=== PATIENT | female | born 1985 ===

== ENCOUNTER → 2020-05-11 08:37 | Outpatient (BNVA) | payer SELFPAY | PROVIDERS: PCP Internal Medicine; Visit Provider Physician Assistant | DX: Z76.89 Persons encountering health services in other specified circumstances (principal) ==

== ENCOUNTER → 2020-06-15 08:38 | Outpatient (BNVA) | payer SELFPAY | PROVIDERS: PCP Internal Medicine; Visit Provider Physician Assistant ==

== ENCOUNTER → 2020-08-03 08:15 | Outpatient (BNVA) | payer SELFPAY | PROVIDERS: PCP Internal Medicine; Visit Provider Physician Assistant | DX: Z90.3 Acquired absence of stomach [part of] (principal); E66.3 Overweight ==

== ENCOUNTER 2020-08-06 10:10 | Outpatient (REF) | payer OTHER, SELFPAY ==
[2020-08-06 11:38] LABS: MANUAL DIFF FLAG NO
[2020-08-06 11:51] LABS: Basophils Percent Auto 0.5 % (0-2); Eosinophils Absolute Auto 0.1 X10*3/uL (0.0-0.4); Eosinophils Percent Auto 2.5 % (0-4); Hematocrit 41.7 % (37-47); Hemoglobin 13.8 g/dl (12.0-16.0); Imm Gran Abs Auto 0.01 X10*3/uL (0.00-0.03); Imm Gran Pct Auto 0.3 % (0.0-0.4); Lymphocytes Absolute Auto 1.8 X10*3/uL (1.2-4.9); Lymphocytes Percent Auto 45.3 % (20-40); Mean Corpuscular HGB Conc 33.1 g/dl (31.0-35.0); Mean Corpuscular Hemoglobin 30.3 pg (27.0-33.0); Mean Corpuscular Volume 91.6 fL (80-98); Mean Platelet Volume 10.9 fL (9.4-12.3); Monocytes Absolute Auto 0.4 X10*3/uL (0.1-1.2); Monocytes Percent Auto 8.9 % (2-11); Neutrophils Absolute Auto 1.7 X10*3/uL (2.0-8.3); Neutrophils Percent Auto 42.5 % (45-73); Platelet Count 252 X10*3/uL (160-400); Red Blood Count 4.55 X10*6/uL (4.20-5.50); Red Cell Distribution Width 12.4 % (11.0-16.0)
[2020-08-06 12:30] LABS: Alanine Aminotransferase 21 U/L (0-31); Albumin Level 3.9 g/dL (3.5-5.0); Alkaline Phosphatase 76 U/L (39-117); Anion Gap 11 (12-20); Aspartate Amino Transferase 21 U/L (5-31); Bilirubin Total 0.8 mg/dL (0.0-1.0); Blood Urea Nitrogen 14 mg/dL (9-16); C Reactive Protein 0.07 mg/dL (< or = 0.50); Calcium 9.1 mg/dL (8.4-10.2); Carbon Dioxide 25 mmol/L (22-29); Chloride 106 mmol/L (96-108); Cholesterol 191 mg/dL; Estimated Glomerular Filt Rate > 60; Glucose Random 79 mg/dL (60-115); HDL Cholesterol 56 mg/dL; LDL Cholesterol Calculated 105 mg/dl; Potassium 4.2 mmol/L (3.3-5.1); Sodium 138 mmol/L (135-145); Total Protein 7.1 g/dL (6.5-8.0); Triglycerides 152 mg/dL
[2020-08-06 12:31] LABS: Estimated Average Glucose 91 mg/dL; Hemoglobin A1c % 4.8 %
[2020-08-06 12:53] LABS: Folate 12.8 ng/mL (> or = 4.0); Vitamin B12 523 pg/mL (200-900)
[2020-08-06 13:15] LABS: Ferritin 21 ng/mL (10-122)
[2020-08-07 09:27] LABS: Insulin Level Total 6.4 uIU/mL
[2020-08-07 11:52] LABS: Calcium (PTHI) 9.1 mg/dL (8.6-10.2); PTHI 31 pg/mL (14-64)
[2020-08-09 02:11] LABS: Zinc 76 mcg/dL (60-130)
[2020-08-11 12:16] LABS: Vitamin A 43 mcg/dL (38-98)
[2020-08-13 08:26] LABS: Vitamin B1 7 nmol/L (8-30)
== END 2020-08-06 10:11 | disposition home or self-care (01) ==
LOC: HO.LAB 10:10
PROVIDERS: PCP Internal Medicine; Visit Provider Physician Assistant
DX: Z90.3 Acquired absence of stomach [part of] (principal)
CPT/HCPCS: 36415; 80053; 80061; 82306; 82607; 82728; 82746; 83036; 83525; 83970; 84425; 84443; 84590; 84630; 85025; 86140

== ENCOUNTER → 2021-04-25 10:26 | Outpatient (BNVA) | payer OTHER, SELFPAY | PROVIDERS: PCP Internal Medicine; Referring Provider Internal Medicine; Visit Provider Physician Assistant | DX: E66.3 Overweight (principal); Z90.3 Acquired absence of stomach [part of]; Z98.891 History of uterine scar from previous surgery; Z68.28 Body mass index [BMI] 28.0-28.9, adult | CPT/HCPCS: 99212 ==

== ENCOUNTER → 2022-06-18 09:18 | Outpatient (BNVA) | payer OTHER, SELFPAY | PROVIDERS: PCP Internal Medicine; Visit Provider Surgery | DX: Z13.89 Encounter for screening for other disorder (principal) ==

== ENCOUNTER → 2022-06-19 16:23 | Outpatient (BNVA) | payer OTHER, SELFPAY | PROVIDERS: PCP Internal Medicine; Visit Provider Physician Assistant Surgical | DX: Z13.89 Encounter for screening for other disorder (principal) ==

== ENCOUNTER → 2022-07-02 16:33 | Outpatient (BNVA) | payer OTHER, SELFPAY | PROVIDERS: PCP Internal Medicine; Visit Provider Physician Assistant Surgical | DX: E66.9 Obesity, unspecified (principal); Z68.29 Body mass index [BMI] 29.0-29.9, adult; Z90.3 Acquired absence of stomach [part of] | CPT/HCPCS: 99212 ==

== ENCOUNTER 2022-07-26 09:16 | Outpatient (REF) | payer OTHER, SELFPAY ==
[2022-07-26 09:30] LABS: MANUAL DIFF FLAG NO
[2022-07-26 10:36] LABS: Basophils Absolute Auto 0.1 X10*3/uL (0.0-0.2); Basophils Percent Auto 1.2 % (0-2); Eosinophils Absolute Auto 0.2 X10*3/uL (0.0-0.4); Eosinophils Percent Auto 3.3 % (0-4); Hematocrit 39.2 % (37.0-47.0); Hemoglobin 12.7 g/dl (12.0-16.0); Imm Gran Abs Auto 0.01 X10*3/uL (0.00-0.03); Imm Gran Pct Auto 0.2 % (0.0-0.4); Lymphocytes Absolute Auto 1.9 X10*3/uL (1.2-4.9); Lymphocytes Percent Auto 37.7 % (20-40); Mean Corpuscular HGB Conc 32.4 g/dl (31.0-35.0); Mean Corpuscular Hemoglobin 27.7 pg (27.0-33.0); Mean Corpuscular Volume 85.6 fL (80.0-98.0); Mean Platelet Volume 11.7 fL (9.4-12.3); Monocytes Absolute Auto 0.4 X10*3/uL (0.1-1.2); Monocytes Percent Auto 8.4 % (2-11); Neutrophils Absolute Auto 2.5 x10*3/uL (2.0-8.3); Neutrophils Percent Auto 49.2 % (45-73); Platelet Count 296 X10*3/uL (160-400); Red Blood Count 4.58 X10*6/uL (4.20-5.50); White Blood Count 5.1 X10*3/uL (4.8-10.8)
[2022-07-26 10:54] LABS: Estimated Average Glucose 103 mg/dL; Hemoglobin A1c % 5.2 %
[2022-07-26 13:23] LABS: Alanine Aminotransferase 18 U/L (0-31); Albumin Level 3.9 g/dL (3.5-5.0); Alkaline Phosphatase 91 U/L (39-117); Anion Gap 13 (12-20); Aspartate Amino Transferase 21 U/L (5-31); Bilirubin Total 0.9 mg/dL (0.0-1.0); Blood Urea Nitrogen 15 mg/dL (9-16); C Reactive Protein < 0.10 mg/dL (< or = 0.50); Calcium 9.1 mg/dL (8.4-10.2); Carbon Dioxide 23 mmol/L (22-29); Chloride 110 mmol/L (96-108); Cholesterol 175 mg/dL; Estimated Glomerular Filt Rate > 60; Glucose Random 83 mg/dL (60-115); HDL Cholesterol 53 mg/dL; Iron 48 mcg/dL (30-160); LDL Cholesterol Calculated 111 mg/dl; Percent Iron Saturation 13 % (15-50); Potassium 4.9 mmol/L (3.3-5.1); Sodium 141 mmol/L (135-145); Total Iron Binding Capacity 370 mcg/dL (228-428); Total Protein 6.8 g/dL (6.5-8.0); Triglycerides 59 mg/dL; Unsaturated Iron Binding 322 ug/dL
[2022-07-26 13:52] LABS: Ferritin 7 ng/mL (10-122); Folate 14.7 ng/mL (> or = 4.0); Insulin 9 uU/mL (2-29); Vitamin B12 574 pg/mL (200-900); Vitamin D 25-OH Total 29.1 ng/mL (>30)
[2022-07-28 12:48] LABS: Calcium (PTHI) 9.4 mg/dL (8.6-10.2); PTHI 25 pg/mL (16-77)
[2022-07-30 05:59] LABS: Zinc 84 mcg/dL (60-130)
[2022-07-31 13:33] LABS: Vitamin A 36 mcg/dL (38-98)
[2022-08-01 06:08] LABS: Vitamin B1 11 nmol/L (8-30)
== END 2022-07-26 09:17 | disposition home or self-care (01) ==
LOC: HO.LAB 09:16
PROVIDERS: Visit Provider Physician Assistant Surgical
DX: E66.9 Obesity, unspecified (principal); Z90.3 Acquired absence of stomach [part of]
CPT/HCPCS: 36415; 80053; 80061; 82306; 82607; 82728; 82746; 83036; 83525; 83540; 83970; 84425; 84443; 84590; 84630; 85025; 86140

== ENCOUNTER 2023-05-28 12:58 | Outpatient (AMB) | payer OTHER, SELFPAY ==
--- NOTE | 2023-05-28 12:59 | MHC.OFFVISWM ---
Intake VS Expanded 05/28/23 13:09 BP 121/70 Blood Pressure Location Rt brachial Blood Pressure Position Sitting Pulse 85 Pulse Source Pulse Oximeter Temp 97.6 F Temperature Source Temporal Artery Scan Pulse Oximetry 98 Oxygen Delivery Method Room Air Height 5 ft 6 in Weight 212 lb 3.2 oz BMI 34.2 Body Fat % 43.8 Body Fat Mass 92.8 Fat Free Mass 119.2 Visceral Fat Rating 10.0 Body Water % 40.2 Body Water Mass 85.4 Muscle Mass/Score 113.4 Basal Metabolic Rate/Score 1,682 Intake Visit Reasons: (OV) PO LSG 07/20/18 Allergies pt stated no food/ med allergi Allergy (Unknown, Uncoded 06/19/22 16:29) Anaphylaxis Medication List - Last Reconciled 05/28/23 by GALE Jasso albuterol sulfate 90 mcg/actuation (Ventolin HFA) 2 puffs inhalation Q4-6H PRN HPI HPI Comments History of Present Illness Details This?is a?38?yo female who is s/p LSG 07/20/2018. Presents for 4 year 10 month post op visit. Weight at last visit on 07/02/2022 was 185.8 pounds with a BMI of 29.9, weight today is 212.2 pounds, representing a 26.4 pound weight gain with a BMI today of 34.2.? No complaints of nausea, emesis, abdominal pain or reflux, or constipation. She will not be working soon due to her company closing. She is actually looking forward to this time to have more time for herself, less stress eating, more time to exercise etc. Present meal plan includes: protein bar for breakfast, shake at lunchtime with 2 scoops Celebrate Rebuild, protein bar in afternoon, dinner of protein and veg -given at last visit although pt has not been following Exercise routine includes: got a stepper for [facility] Medical History (Updated 06/18/22 @ 10:44 by Christofer Cross MD) Asthma Obesity PCOS (polycystic ovarian syndrome) Surgical History History of sleeve gastrectomy Hx of section Hx of cholecystectomy S/P panniculectomy Family History Mother Diabetes Father Hyperlipidemia Hypertension Diabetes Sister Obesity Brother No problems noted. Son No problems noted. Social History (Updated 04/25/21 @ 10:46 by Donny Villalba [facility]) Alcohol intake: current Alcohol intake frequency: holidays/special occasions only Patient Tobacco Use Status: Never used Tobacco Assessment & Plan Assessment & Plan (1) Obesity: Code(s): E66.9 - Obesity, unspecified (2) History of sleeve gastrectomy: Code(s): Z90.3 - Acquired absence of stomach [part of] Plan New meal plan based on pt's current work schedule: 7:30am-9:30am Celebrate Rebuild shake (20g) 11:45am ZP protein bar 3-5pm Celebrate Rebuild shake 7pm dinner- 6 forks meat, 6 forks salad/veg 9pm- Pashto yogurt if she needs a snack before bed Encouraged pt to restart stair stepper, 30 min per day. RTC 6 weeks when pt is finished with current job. At that time can plan for pt's new schedule. Will also order labs at that time. Patient is obese and is not considered stable at this time. I spent a total of 30 minutes reviewing/updating records, examining the patient and counseling the patient on weight management as detailed above. Coding Level of Care Code Est Pt Level 4 (04983) Diagnoses Obesity E66.9 History of sleeve gastrectomy Z90.3
[2023-05-28 13:09] VITALS: BP 121/70; PULSE 85; TEMP 36.4; O2SAT 98; BMI 34.2
== END 2023-05-28 14:01 | disposition home or self-care (01) ==
PROVIDERS: PCP Internal Medicine; Visit Provider Physician Assistant Surgical
DX: E66.9 Obesity, unspecified (principal); Z68.34 Body mass index [BMI] 34.0-34.9, adult; Z90.3 Acquired absence of stomach [part of]; Z98.84 Bariatric surgery status
CPT/HCPCS: 99214

== ENCOUNTER → 2023-05-28 12:58 | Outpatient (BNVA) | payer OTHER, SELFPAY | PROVIDERS: PCP Internal Medicine; Visit Provider Physician Assistant Surgical | DX: E66.9 Obesity, unspecified (principal); Z90.3 Acquired absence of stomach [part of]; Z68.34 Body mass index [BMI] 34.0-34.9, adult | CPT/HCPCS: 99212 ==

== ENCOUNTER 2023-10-12 08:21 | Outpatient (REF) | payer OTHER, SELFPAY ==
[2023-10-12 08:43] LABS: MANUAL DIFF FLAG NO
[2023-10-12 09:12] LABS: Basophils Absolute Auto 0.1 X10*3/uL (0.0-0.2); Basophils Percent Auto 0.9 % (0-2); Eosinophils Absolute Auto 0.2 X10*3/uL (0.0-0.4); Eosinophils Percent Auto 3.1 % (0-4); Hematocrit 41.4 % (37.0-47.0); Hemoglobin 13.9 g/dl (12.0-16.0); Imm Gran Abs Auto 0.02 X10*3/uL (0.00-0.03); Imm Gran Pct Auto 0.4 % (0.0-0.4); Lymphocytes Absolute Auto 1.8 X10*3/uL (1.2-4.9); Lymphocytes Percent Auto 33.3 % (20-40); Mean Corpuscular HGB Conc 33.6 g/dl (31.0-35.0); Mean Corpuscular Hemoglobin 29.3 pg (27.0-33.0); Mean Corpuscular Volume 87.2 fL (80.0-98.0); Mean Platelet Volume 11.3 fL (9.4-12.3); Monocytes Absolute Auto 0.4 X10*3/uL (0.1-1.2); Monocytes Percent Auto 7.2 % (2-11); Neutrophils Percent Auto 55.1 % (45-73); Platelet Count 312 X10*3/uL (160-400); Red Blood Count 4.75 X10*6/uL (4.20-5.50); Red Cell Distribution Width 13.2 % (11.0-16.0); White Blood Count 5.4 X10*3/uL (4.8-10.8)
[2023-10-12 09:23] LABS: Estimated Average Glucose 108 mg/dL; Hemoglobin A1c % 5.4 % (<6.0)
[2023-10-12 10:37] LABS: Alanine Aminotransferase 28 U/L (0-31); Albumin Level 3.9 g/dL (3.5-5.0); Alkaline Phosphatase 101 U/L (39-117); Anion Gap 9 (12-20); Aspartate Amino Transferase 27 U/L (5-31); Bilirubin Total 0.7 mg/dL (0.0-1.0); Blood Urea Nitrogen 11 mg/dL (9-16); C Reactive Protein 0.14 mg/dL (< or = 0.50); Calcium 9.5 mg/dL (8.4-10.2); Carbon Dioxide 26 mmol/L (22-29); Chloride 108 mmol/L (96-108); Cholesterol 186 mg/dL (<200); Estimated Glomerular Filt Rate > 60; Glucose Random 80 mg/dL (60-115); HDL Cholesterol 49 mg/dL (>40); Iron 80 mcg/dL (30-160); LDL Cholesterol Calculated 110 mg/dL (<100); Percent Iron Saturation 22 % (15-50); Potassium 3.8 mmol/L (3.3-5.1); Sodium 139 mmol/L (135-145); Total Iron Binding Capacity 372 mcg/dL (228-428); Total Protein 7.2 g/dL (6.5-8.0); Triglycerides 139 mg/dL (<150); Unsaturated Iron Binding 292 ug/dL
[2023-10-12 10:56] LABS: Ferritin 14 ng/mL (10-122); Insulin 12 uU/mL (2-29); Vitamin D 25-OH Total 19.2 ng/mL (>30)
[2023-10-12 11:04] LABS: Folate 7.6 ng/mL (> or = 4.0); Vitamin B12 306 pg/mL (200-900)
[2023-10-14 17:28] LABS: Zinc 70 mcg/dL (60-130)
[2023-10-16 06:48] LABS: Vitamin A 41 mcg/dL (38-98)
[2023-10-17 11:28] LABS: Vitamin B1 <6 nmol/L (8-30)
== END 2023-10-12 08:22 | disposition home or self-care (01) ==
LOC: HO.LAB 08:21
PROVIDERS: PCP Internal Medicine; Visit Provider Physician Assistant Surgical
DX: Z90.3 Acquired absence of stomach [part of] (principal)
CPT/HCPCS: 36415; 80053; 80061; 82306; 82607; 82728; 82746; 83036; 83525; 83540; 84425; 84443; 84590; 84630; 85025; 86140

== ENCOUNTER 2023-12-30 13:24 | Outpatient (AMB) | payer OTHER, SELFPAY ==
--- NOTE | 2023-12-30 13:26 | MHC.OFFVISWM ---
VS Expanded 12/30/23 13:30 BP 116/60 Blood Pressure Location Rt brachial Blood Pressure Position Sitting Pulse 84 Pulse Source Pulse Oximeter Temp 96.6 F L Temperature Source Temporal Artery Scan Pulse Oximetry 94 Oxygen Delivery Method Room Air Height 5 ft 6 in Weight 224 lb 6.4 oz BMI 36.2 Body Fat % 43.7 Body Fat Mass 97.8 Fat Free Mass 126.4 Visceral Fat Rating 10.0 Body Water % 40.3 Body Water Mass 90.4 Muscle Mass/Score 120.0 Basal Metabolic Rate/Score 1,779 Intake Visit Reasons: (OV) PO LSG 07/20/18 Allergies pt stated no food/ med allergi Allergy (Unknown, Uncoded 12/30/23 13:26) Anaphylaxis HPI Comments Details: This?is a?38?yo female who is s/p LSG 07/20/2018. Presents for 5.5 year post op visit. Weight at last visit on 05/28/2023 was 212.2 pounds with a BMI of 34.2, weight today is 224.4 pounds, representing a 12.2 pound weight gain with a BMI today of 36.2.? No complaints of nausea, emesis, abdominal pain or reflux, or constipation. Pt reports being unemployed since August, lack of structure is difficult. Did not follow the plan after the first week of trying. Had high cholesterol per PCP, was told to try a low fat diet. Struggling with cravings. Wants a revision or meds to help. Present meal plan includes: 7:30am-9:30am Celebrate Rebuild shake (20g) 11:45am ZP protein bar 3-5pm Celebrate Rebuild shake 7pm dinner- 6 forks meat, 6 forks salad/veg 9pm- Japanese yogurt if she needs a snack before bed Exercise: Encouraged pt to restart stair stepper, 30 min per day. has not been able to do this comfortably due to pain, but seeing her doctor this week and hoping to get relief [facility] Medical History (Updated 06/18/22 @ 10:44 by Christofer Cross MD) Asthma Obesity PCOS (polycystic ovarian syndrome) Surgical History S/P panniculectomy Hx of section Hx of cholecystectomy History of sleeve gastrectomy Family History Mother Diabetes Father Hyperlipidemia Hypertension Diabetes Sister Obesity Brother No problems noted. Son No problems noted. Social History (Updated 05/28/23 @ 13:04 by Elizabeth Lozano [facility]) Alcohol intake: current Alcohol intake frequency: holidays/special occasions only Patient Tobacco Use Status: Never used Tobacco Physical Exam Vital Signs: BMI result Body Mass Index 36.2 Assessment & Plan Assessment & Plan (1) Obesity: Code(s): E66.9 - Obesity, unspecified Category: Medical (2) History of sleeve gastrectomy: Code(s): Z90.3 - Acquired absence of stomach [part of] Category: Medical Plan New plan, goal 90g protein/day: Premier shake ZP or Quest bar Japanese yogurt Meal 6-8f/6-8f Exercise- stair stepper as much as comfortably able RTC 4-6 weeks, pt instructed to text me weekly with measurements and updates and to reach out with any concerns. I spent a total of 30 minutes reviewing/updating records, examining the patient and counseling the patient on weight management as detailed above. Medications: New docusate sodium 100 mg PO BID 90 caps 2RF inulin 2 grams PO DAILY 90 tabs 3RF
[2023-12-30 13:30] VITALS: BP 116/60; PULSE 84; TEMP 35.9; O2SAT 94; BMI 36.2
== END 2023-12-30 14:03 | disposition home or self-care (01) ==
PROVIDERS: PCP Internal Medicine; Visit Provider Physician Assistant Surgical
DX: E66.9 Obesity, unspecified (principal); Z68.36 Body mass index [BMI] 36.0-36.9, adult; Z90.3 Acquired absence of stomach [part of]; Z98.84 Bariatric surgery status
CPT/HCPCS: 99214

== ENCOUNTER → 2023-12-30 13:24 | Outpatient (BNVA) | payer OTHER, SELFPAY | PROVIDERS: PCP Internal Medicine; Visit Provider Physician Assistant Surgical | DX: E66.9 Obesity, unspecified (principal); Z71.3 Dietary counseling and surveillance; Z98.84 Bariatric surgery status; Z68.36 Body mass index [BMI] 36.0-36.9, adult | CPT/HCPCS: 99212 ==